=== PATIENT | female | born 1975 | race Hispanic/Latino ===

== ENCOUNTER 2018-06-02 09:35 | Emergency (ER) | payer OTHER, BC ==
[2018-06-02 09:44] VITALS: BP 141/91; PULSE 84; RESP 20; TEMP 98.4; O2SAT 96
--- NOTE | 2018-06-02 10:59 | C.PDOC ---
History Of Present Illness 42 y/o female brought to ER by ambulance from school for evaluation of head injury s/p fall today. Patient states that she was walking down the stairs when she slipped and fell forward hitting her head. Patient is complaining of abrasion to lip, low back pain, left knee and herrera pain. She also notes that she has mild nausea. Denies having LOC, headache,dizziness, visual changes, and vomiting. Time Seen by Provider: 06/02/18 09:39 Chief Complaint (Nursing): Lower Extremity Problem/Injury History Per: Patient History/Exam Limitations: no limitations Onset/Duration Of Symptoms: Hrs Current Symptoms Are (Timing): Still Present Severity: Moderate Past Medical History Reviewed: Historical Data, Nursing Documentation, Vital Signs Vital Signs: Last Vital Signs Temp 98.4 F 06/02/18 09:41 Pulse 84 06/02/18 09:41 Resp 20 06/02/18 09:41 BP 141/91 H 06/02/18 09:41 Pulse Ox 96 06/02/18 09:41 - Medical History PMH: No Chronic Diseases Surgical History: No Surg Hx Family History: States: No Known Family Hx - Social History Hx Alcohol Use: No Hx Substance Use: No - Immunization History Hx Tetanus Toxoid Vaccination: No Hx Influenza Vaccination: Yes Hx Pneumococcal Vaccination: No Review Of Systems Except As Marked, All Systems Reviewed And Found Negative. Cardiovascular: Negative for: Chest Pain Respiratory: Negative for: Shortness of Breath Gastrointestinal: Positive for: Nausea. Negative for: Vomiting Musculoskeletal: Positive for: Back Pain, Other (left knee and herrera pain) Skin: Positive for: Other (abrasion to lips) Neurological: Negative for: Weakness, Numbness, Headache, Dizziness Physical Exam - Physical Exam Appears: Non-toxic, No Acute Distress Skin: Warm, Dry, Other (contusion with abrasion to left knee and left proximal herrera) Head: Atraumatic, Normacephalic Eye(s): bilateral: Normal Inspection, PERRL, EOMI Nose: Normal Oral Mucosa: Moist Lips: Abrasion (small abrasion to right upper lip) Neck: Normal ROM, No Midline Cervical Tenderness, Supple Chest: Symmetrical Cardiovascular: Rhythm Regular Respiratory: Normal Breath Sounds, No Rales, No Rhonchi, No Wheezing Gastrointestinal/Abdominal: Normal Exam, Soft, No Tenderness, No Guarding, No Rebound Back: No Vertebral Tenderness, Paraspinal Tenderness (lumbar paraspinal t enderness around L4-L5) Extremity: Normal ROM (left ankle and knee ), Tenderness (tenderness to palpation over left knee and left proximal herrera), Swelling (mild swelling to le ft knee and left proximal herrera) Neurological/Psych: Oriented x3, Normal Speech, Normal Motor, Normal Sensation ED Course And Treatment O2 Sat by Pulse Oximetry: 96 (RA) Pulse Ox Interpretation: Normal - Other Rad E-Ssf-Rpjbhj Spine X-Ray: Viewed By Me, Read By Radiologist Interpretation: Date of service: 06/02/2018. PROCEDURE: Radiographs of the Lumbar Spine. HISTORY: low back pain after fall down stairs. COMPARISON: No ne available. FINDINGS: BONES: Alignment appears satisfactory. No listhesis. No acute displaced fracture identified. Mild degenerative changes including small osteophyte formation. Facet hypertrophy. DISC SPACES: Unremarkable. OTHER FINDINGS: None. IMPRESSION: No acute displaced fracture or subluxation identified. X-Ray-Left Knee X-Ray: Viewed By Me, Read By Radiologist Interpretation: PROCEDURE: Left Knee Radiographs. HISTORY: left knee pain after fall down stairs. COMPARISON: None available. FINDINGS: BONES: No acute displaced fracture. JOINTS: No dislocation. JOINT EFFUSION: No significant joint effusion. OTHER FINDINGS: None. IMPRESSION: No acute displaced fracture, dislocation, or significant joint effusion identified. If symptoms persist, or if there is continued clinical concern, x-ray follow-up in 7-10 days should be considered. X-Ray-Left Tibia/Fibula X-Ray: Viewed By Me, Read By Radiologist Interpretation: PROCEDURE: Radiographs of the left tibia and fibula. HISTORY: left leg pain after fall. COMPARISON: None available. TECHNIQUE: Frontal and lateral views obtained. Two views. FINDINGS: BONES: No acute displaced fracture. JOINT SPACES: No dislocation. OTHER FINDINGS: Soft tissues appear unremarkable. No evidence of radiopaque foreign body. IMPRESSION: No acute displaced fracture, dislocation, or significant joint effusion identified. If symptoms persist, or if there is continued clinical concern, x-ray follow-up in 7-10 days should be considered. Progress Note: A-Bkp-Lfjczz Spine, X-Ray-Left Knee,and X-Ray-Left Tibia/Fibula were negative. Patient treated with Motrin PO. Patient has been discharged and instructed to follow up with PMD in 1-2 days. Disposition Counseled Patient/Family Regarding: Studies Performed, Diagnosis, Need For Follo wup, Rx Given - Disposition Referrals: [facility] [Outside] Disposition: HOME/ ROUTINE Disposition Time: 11:00 Condition: STABLE Additional Instructions: FOLLOW UP WITH YOUR DOCTOR/CLINIC IN 1-2 DAYS USE MEDICATIONS NEEDED, AND GET PLENTY OF REST RETURN TO ER IF YOU HAVE CONCERNING SYMPTOMS SUCH SEVERE HEADACHE/DIZZINESS, VISUAL CHANGES, DIFFICULTY WALKING ETC Prescriptions: Ibuprofen [Motrin Tab] 600 mg PO Q6 PRN #30 tab PRN Reason: fever/pain Ondansetron ODT [Zofran ODT] 1 odt PO BID PRN #12 odt PRN Reason: Nausea/Vomiting Instructions: Lumbar Muscle Strain (DC), Closed Head Injury (DC), Knee Sprain (DC), Skin Abrasions (DC) Forms: [employer] (Tajik), Work Excuse Print Language: [place] - Clinical Impression Clinical Impression: Lumbar back sprain, Left knee sprain, Closed head injury, Skin abrasion - Scribe Statement The provider has reviewed the documentation as recorded by the Franco Ortiz Provider Attestation: All medical record entries made by the Franco were at my direction and pers onally dictated by me. I have reviewed the chart and agree that the record accurately reflects my personal performance of the history, physical exam, medical decision making, and the department course for this patient. I have also personally directed, reviewed, and agree with the discharge instructions and disposition.
--- NOTE | 2018-06-02 11:11 | RAD ---
Date of service: 06/02/2018 PROCEDURE: Radiographs of the Lumbar Spine. HISTORY: low back pain after fall down stairs COMPARISON: None available FINDINGS: BONES: Alignment appears satisfactory. No listhesis. No acute displaced fracture identified. Mild degenerative changes including small osteophyte formation. Facet hypertrophy. DISC SPACES: Unremarkable. OTHER FINDINGS: None. IMPRESSION: No acute displaced fracture or subluxation identified.
--- NOTE | 2018-06-02 11:14 | RAD ---
PROCEDURE: Left Knee Radiographs. HISTORY: left knee pain after fall down stairs COMPARISON: None available. FINDINGS: BONES: No acute displaced fracture. JOINTS: No dislocation. JOINT EFFUSION: No significant joint effusion. OTHER FINDINGS: None. IMPRESSION: No acute displaced fracture, dislocation, or significant joint effusion identified. If symptoms persist, or if there is continued clinical concern, x-ray follow-up in 7-10 days should be considered.
--- NOTE | 2018-06-02 11:16 | RAD ---
PROCEDURE: Radiographs of the left tibia and fibula. HISTORY: left leg pain after fall COMPARISON: None available. TECHNIQUE: Frontal and lateral views obtained. Two views. FINDINGS: BONES: No acute displaced fracture. JOINT SPACES: No dislocation. OTHER FINDINGS: Soft tissues appear unremarkable. No evidence of radiopaque foreign body. IMPRESSION: No acute displaced fracture, dislocation, or significant joint effusion identified. If symptoms persist, or if there is continued clinical concern, x-ray follow-up in 7-10 days should be considered.
== END 2018-06-02 11:18 | disposition home or self-care (01) ==
LOC: C.ER 09:35
DX: S33.5XXA Sprain of ligaments of lumbar spine, initial encounter (principal); S83.92XA Sprain of unspecified site of left knee, initial encounter; S09.90XA Unspecified injury of head, initial encounter; S00.511A Abrasion of lip, initial encounter; S80.212A Abrasion, left knee, initial encounter; W10.9XXA Fall (on) (from) unspecified stairs and steps, initial encounter